=== PATIENT | male | born 1975 | race Caucasian/White ===

== ENCOUNTER 2016-06-13 15:16 | Emergency (ER) | payer OTHER ==
[2016-06-13 16:15] VITALS: TEMP 98.2
[2016-06-13] MEDS ORDERED: METOCLOPRAMIDE 5 MG/ML 2 ML VIAL IVP STA (16:41)
[2016-06-13] MEDS ORDERED: GLUCAGON 1 MG/ML VIAL IVP STA (16:42)
[2016-06-13] MEDS ORDERED: NITROGLYCERIN SL TABS 0.4 MG TAB SUBLINGUAL STA (16:42)
--- NOTE | 2016-06-13 16:44 | ED ---
ENT HPI - General Chief complaint: ENT Stated complaint: Cannot swallow Time Seen by Provider: 06/13/16 16:11 Source: patient Mode of arrival: ambulatory Limitations: no limitations - History of Present Illness Initial comments: Patient is a 41-year-old male presenting to the emergency department with complaints of dysphagia. Patient states that he took a Motrin yesterday around 7 AM for headache and it became lodged in his throat. Patient states that he now is unable swallow liquids. Patient denies previous illness, fevers , nausea, vomiting, shortness of breath, chest pain, or abdominal pain. Patient denies similar episode. MD complaint: difficulty swallowing Onset/Timin -: days(s) Location: throat Severity: mild Severity scale (1-10): 4 - Related Data Home Medications Medication Instructions Recorded Confirmed Cholecalciferol [Vitamin D3] 4,000 unit PO DAILY 06/13/16 06/13/16 Ibuprofen [Motrin] 200 - 400 mg PO Q6H PRN 06/13/16 06/13/16 Previous Rx's Medication Instructions Recorded Sucralfate [Carafate] 1 gm PO BID #14 tablet 06/13/16 Allergies Allergy/AdvReac Type Severity Reaction Status Date / Time No Known Allergies Allergy Unverified 06/13/16 16:14 Review of Systems ROS Statement: Those systems with pertinent positive or pertinent negative responses have been documented in the HPI. ROS Other: All systems not noted in ROS Statement are negative. Past Medical History Past Medical History: No Reported History History of Any Multi-Drug Resistant Organisms: None Reported Past Surgical History: Tonsillectomy Past Psychological History: Anxiety, Depression Smoking Status: Never smoker Past Alcohol Use History: Occasional Past Drug Use History: None Reported General Exam Limitations: no limitations General appearance: alert, in no apparent distress Head exam: Present: atraumatic, normocephalic, normal inspection Eye exam: Present: normal appearance ENT exam: Present: normal exam, normal oropharynx, mucous membranes moist, TM's normal bilaterally, normal external ear exam Expanded Mouth exam: Present: normal external inspection. Absent: drooling, trismus, tongue normal Teeth exam: Present: normal inspection Throat exam: normal inspection, other (Mild erythema to posterior pharynx) Neck exam: Present: normal inspection, full ROM. Absent: tenderness, meningismus, lymphadenopathy, thyromegaly Respiratory exam: Present: normal lung sounds bilaterally Cardiovascular Exam: Present: tachycardia, normal heart sounds GI/Abdominal exam: Present: soft, normal bowel sounds Extremities exam: Present: normal inspection Neurological exam: Present: alert, oriented X3, CN II-XII intact Psychiatric exam: Present: normal affect, normal mood Skin exam: Present: warm, dry, intact, normal color. Absent: rash Course Vital Signs 06/13/16 06/13/16 06/13/16 16:02 16:12 16:52 Temperature 98 F 98.2 F 98.2 F Pulse Rate 115 H 100 100 Respiratory 20 16 16 Rate Blood Pressure 135/92 109/82 147/76 O2 Sat by Pulse 99 98 98 Oximetry 06/13/16 17:37 Temperature Pulse Rate 80 Respiratory 18 Rate Blood Pressure 157/90 O2 Sat by Pulse 98 Oximetry Medical Decision Making - Medical Decision Making Patient is a 41-year-old male presenting to the emergency department with complaints of dysphagia after a pill got lodged in his throat. Patient was given a cocktail of IV Reglan, sublingual nitroglycerin, and IV glucagon after which patient was able to swallow liquids with minimal difficulty. Patient discharged home with instructions to stay on clear liquid diet with follow-up and gastrointestinal service. Patient agrees with treatment plan. Discharge instructions and return parameters reviewed. Disposition Clinical Impression: Pharyngeal dysphagia Disposition: HOME SELF-CARE Condition: Good Instructions: Dysphagia (ED), Clear Liquid Diet (ED) Additional Instructions: Continue clear liquid diet. Continue Carafate twice daily. Follow-up with Dr. Dodd for gastrointestinal service as directed. Please return to the emergency department if symptoms do not improve or get worse. Prescriptions: Sucralfate [Carafate] 1 gm PO BID #14 tablet Referrals: None,Stated [Primary Care Provider] - 1-2 days Heriberto Dodd MD [STAFF PHYSICIAN] - 1-2 days Time of Disposition: 17:19
[2016-06-13 17:38] VITALS: BP 157/90; PULSE 80; RESP 18
== END 2016-06-13 17:38 | disposition home or self-care (01) ==
LOC: EC 15:16
DX: R13.13 Dysphagia, pharyngeal phase (principal); Z79.899 Other long term (current) drug therapy
CPT/HCPCS: 96374 ×2; 96375 ×2; 99283 ×2; J1610; J2765

== ENCOUNTER → 2020-08-07 | Outpatient (CLI) | payer OTHER | END | disposition home or self-care (01) | LOC: LABWHC1 16:40 | PROVIDERS: ATTEND Family Medicine | DX: Z20.822 Contact with and (suspected) exposure to COVID-19 (principal) | CPT/HCPCS: U0003; C9803; U0005 ==

== ENCOUNTER → 2020-08-16 | Outpatient (CLI) | payer OTHER | END | disposition home or self-care (01) | LOC: LABWHC1 17:14 | PROVIDERS: ATTEND Family Medicine | DX: Z20.822 Contact with and (suspected) exposure to COVID-19 (principal) | CPT/HCPCS: U0003; C9803 ==